=== PATIENT | male | born 1960 | race Caucasian/White ===

== ENCOUNTER 2016-12-10 05:22 | Inpatient (IN) | payer MEDICAID ==
[~2016-12-10] VITALS: Ht 175.3 cm; Wt 102.5 kg
[2016-12-10] MEDS ORDERED: MORPHINE SULFATE 4 MG/ML SYRG IV ONE (05:45)
[2016-12-10] MEDS ORDERED: HEPARIN SODIUM (PORCINE) 5000 UNITS/ML 1ML VIAL ONE (05:51)
[2016-12-10] MEDS ORDERED: LIDOCAINE 2%HCL (LOCAL ANESTH.) INJ 20ML MDV ONE (06:11)
[2016-12-10] MEDS ORDERED: IODIXANOL 320MG/ML 100ML BTL IV ONE (06:12)
[2016-12-10] MEDS ORDERED: HEPARIN IN NS 1000Units/500mL 1,500 ML ONE (06:12)
[2016-12-10 06:35] LABS: Albumin 3.7 g/dL (3.4-5.0); Calcium 8.6 mg/dL (8.5-10.1); Potassium 4.4 mmol/L (3.5-5.1)
[2016-12-10] MEDS ORDERED: MIDAZOLAM HCL 1MG/1ML-2 ML VIAL ONE (06:35)
[2016-12-10] MEDS ORDERED: fentaNYL CITRATE 100 MCG/2 ML VL ONE (06:35)
[2016-12-10] MEDS ORDERED: SODIUM CHL 0.9% 0 ML ONE (06:36)
[2016-12-10] MEDS ORDERED: ANGIOMAX 250 MG VIAL IV ONE (06:36)
[2016-12-10] MEDS ORDERED: EPINEPHrine HCL 1 MG/10 ML SYRG ONE (06:37)
[2016-12-10] MEDS ORDERED: ATROPINE SULF 0.5 MG/5ML SYR ONE (06:37)
[2016-12-10 06:38] LABS: Bilirubin, Total 0.2 mg/dL (0.2-1.0); Total Protein 7.1 g/dL (6.4-8.2)
[2016-12-10 06:58] LABS: Basophils # (auto) 0.1 uL; Basophils % (auto) 0.6 % (0.0-2.0); DEFINITIVE VIEW TRANSMISSION; Eosinophils # (auto) 0.2 uL; Eosinophils % (auto) 2.1 % (0.0-7.0); Hematocrit 54.9 % (41.0-53.0); Hemoglobin 17.6 g/dL (13.5-17.5); Lymphocytes # (auto) 1.7 uL; Mean Corpuscular Hemoglobin 28.2 pg (28.0-32.0); Mean Corpuscular Hgb Conc. 32.1 g/dL (32.0-36.0); Mean Platelet Volume 9.3 fL (7.4-10.4); Monocytes # (auto) 0.8 uL; Monocytes % (auto) 8.6 % (0.0-12.0); Neutrophils # (auto) 6.3 uL; Neutrophils % (auto) 69.7 % (37.0-80.0); Platelet Count (auto) 207 10^3/uL (140-450); Red Cell Distribution Width 14.8 % (11.6-16.0); White Blood Cell 9.1 10^3/uL (4.4-10.8)
[2016-12-10] MEDS ORDERED: DEXTROSE (50%) 50ML SYRG IV PRN ×2 (07:45→11:45)
[2016-12-10] MEDS ORDERED: NITROGLYCERIN 0.4 MG SL TAB SL PRN (07:45)
[2016-12-10] MEDS ORDERED: MORPHINE SULF INJ 2 MG/ML SYRINGE 1ML IV PRN (07:45)
[2016-12-10 08:38] LABS: Cholesterol 173 mg/dL (<200); HDL Cholesterol 42 mg/dL (40-59); LDL Cholesterol 100 mg/dL (<100); Triglycerides 265 mg/dL (<150)
[2016-12-10] MEDS: METOPROLOL SUCCINATE XL 50 MG TAB PO SCH (09:19)
[2016-12-10] MEDS: CLOPIDOGREL BISULFATE 75 MG TAB PO SCH (09:19)
[2016-12-10] MEDS: ATORVASTATIN 20 MG TAB PO SCH (09:19)
[2016-12-10] MEDS: ASPirin-EC 81 mg tab PO SCH (09:19)
[2016-12-10] MEDS: ENALAPRIL MALEATE 2.5 MG TAB PO SCH (09:20)
[2016-12-10] MEDS ORDERED: InsuLIN REG 1unit/0.01ml Soln (100units/ml) SC SCH ×2 (11:30→22:00)
[2016-12-10] MEDS ORDERED: ACCU-CHEK COMFORT CURVE STRIP VI SCH (11:30)
[2016-12-10] MEDS: ACCU-CHEK COMFORT CURVE STRIP VI SCH ×3 (11:54→21:21)
[2016-12-10] MEDS: InsuLIN REG 1unit/0.01ml Soln (100units/ml) SC SCH ×3 (11:55→21:26)
[2016-12-10 13:29] VITALS: BP 108/62
[2016-12-10] MEDS ORDERED: LISI10TA6 PO (14:59)
[2016-12-10] MEDS ORDERED: METO25TA5 PO (14:59)
[2016-12-10] MEDS ORDERED: ATOR40TA52 PO (14:59)
[2016-12-10] MEDS ORDERED: CLOP75TA41 PO (14:59)
[2016-12-10] MEDS ORDERED: ASPI-231 PO (14:59)
[2016-12-10 17:00] VITALS: BP 115/62
[2016-12-10 20:00] VITALS: BP 106/58
[2016-12-10 21:30] VITALS: BP 106/58
[2016-12-11 05:00] VITALS: BP 112/62
[2016-12-11] MEDS: ACCU-CHEK COMFORT CURVE STRIP VI SCH ×4 (06:20→21:49)
[2016-12-11] MEDS: InsuLIN REG 1unit/0.01ml Soln (100units/ml) SC SCH ×4 (06:25→21:49)
[2016-12-11 06:36] LABS: Basophils # (auto) 0 uL; Basophils % (auto) 0.5 % (0.0-2.0); Eosinophils # (auto) 0.2 uL; Eosinophils % (auto) 2.3 % (0.0-7.0); Hematocrit 53.6 % (41.0-53.0); Hemoglobin 16.9 g/dL (13.5-17.5); Lymphocytes # (auto) 1.8 uL; Mean Corpuscular Hemoglobin 28.2 pg (28.0-32.0); Mean Corpuscular Hgb Conc. 31.6 g/dL (32.0-36.0); Mean Corpuscular Volume 89.4 fL (80.0-100.0); Mean Platelet Volume 9.1 fL (7.4-10.4); Monocytes # (auto) 0.8 uL; Monocytes % (auto) 8.6 % (0.0-12.0); Neutrophils # (auto) 6.3 uL; Neutrophils % (auto) 68.6 % (37.0-80.0); Platelet Count (auto) 200 10^3/uL (140-450); Red Cell Distribution Width 14.7 % (11.6-16.0); White Blood Cell 9.1 10^3/uL (4.4-10.8)
[2016-12-11 06:47] LABS: Potassium 4.5 mmol/L (3.5-5.1)
[2016-12-11 06:52] LABS: BUN/Creatinine Ratio 15.6; Calcium 8.2 mg/dL (8.5-10.1)
[2016-12-11 09:00] VITALS: BP 120/59
[2016-12-11] MEDS: ASPirin-EC 81 mg tab PO SCH (10:35)
[2016-12-11] MEDS: CLOPIDOGREL BISULFATE 75 MG TAB PO SCH (10:35)
[2016-12-11] MEDS: ENOXAPARIN SOD 100 MG/1 ML SYRINGE SC SCH ×2 (10:35→21:40)
[2016-12-11] MEDS: ATORVASTATIN 20 MG TAB PO SCH (10:36)
[2016-12-11] MEDS: METOPROLOL SUCCINATE XL 50 MG TAB PO SCH (10:36)
[2016-12-11] MEDS: ENALAPRIL MALEATE 2.5 MG TAB PO SCH (10:37)
[2016-12-11 13:00] VITALS: BP 121/73
[2016-12-11 17:00] VITALS: BP 113/62
[2016-12-11 20:00] VITALS: BP 112/70
[2016-12-11 21:58] VITALS: BP 112/70
[2016-12-12 04:48] VITALS: BP 102/66
[2016-12-12] MEDS: InsuLIN REG 1unit/0.01ml Soln (100units/ml) SC SCH ×2 (06:47→11:30)
[2016-12-12] MEDS: ACCU-CHEK COMFORT CURVE STRIP VI SCH ×2 (07:00→11:33)
[2016-12-12 08:00] VITALS: BP 102/66
[2016-12-12 09:00] VITALS: BP 113/63
[2016-12-12] MEDS: ENOXAPARIN SOD 100 MG/1 ML SYRINGE SC SCH (09:20)
[2016-12-12] MEDS: ASPirin-EC 81 mg tab PO SCH (09:20)
[2016-12-12] MEDS: CLOPIDOGREL BISULFATE 75 MG TAB PO SCH (09:20)
[2016-12-12] MEDS: ATORVASTATIN 20 MG TAB PO SCH (09:20)
[2016-12-12] MEDS: METOPROLOL SUCCINATE XL 50 MG TAB PO SCH (10:00)
[2016-12-12] MEDS: ENALAPRIL MALEATE 2.5 MG TAB PO SCH (10:00)
[2016-12-12 13:00] VITALS: BP 112/78
[2016-12-12 15:18] VITALS: BP 112/78
== END 2016-12-12 16:00 | disposition home or self-care (01) | DRG 190 ==
LOC: ER 05:22 → EAST 05:23 → TELE-EAST 08:15
PROVIDERS: ADMIT Emergency Medicine; ATTEND Internal Medicine
PROC: 4A023N7 Measurement of Cardiac Sampling and Pressure, Left Heart, Percutaneous Approach (ICD-10-PCS; principal; 2016-12-10)
PROC: B2111ZZ Fluoroscopy of Multiple Coronary Arteries using Low Osmolar Contrast (ICD-10-PCS; 2016-12-10)
PROC: B2151ZZ Fluoroscopy of Left Heart using Low Osmolar Contrast (ICD-10-PCS; 2016-12-10)
PROC: B41F1ZZ Fluoroscopy of Right Lower Extremity Arteries using Low Osmolar Contrast (ICD-10-PCS; 2016-12-10)
DX: I21.3 ST elevation (STEMI) myocardial infarction of unspecified site (principal); I50.43 Acute on chronic combined systolic (congestive) and diastolic (congestive) heart failure; T82.855A Stenosis of coronary artery stent, initial encounter; E66.01 Morbid (severe) obesity due to excess calories; Y83.1 Surgical operation with implant of artificial internal device as the cause of abnormal reaction of the patient, or of later complication, without mention of misadventure at the time of the procedure; I10 Essential (primary) hypertension; F17.210 Nicotine dependence, cigarettes, uncomplicated; I25.10 Atherosclerotic heart disease of native coronary artery without angina pectoris; I25.5 Ischemic cardiomyopathy; E78.5 Hyperlipidemia, unspecified; I25.2 Old myocardial infarction; Z68.33 Body mass index [BMI] 33.0-33.9, adult
CPT/HCPCS: 36415; 71010; 80048; 80053; 80061; 82962; 83036; 84443; 84484; 85025; 93005; 93306; 96365; 96375; 99291; J0461; J1815; J2250; Q9967

== ENCOUNTER 2017-04-13 02:34 | Inpatient (IN) | payer MEDICAID ==
[~2017-04-13] VITALS: Ht 175.3 cm; Wt 118.4 kg
[~2017-04-13 02:34] MED LIST: ASPI-231 PO; ATOR40TA52 PO; CLOP75TA41 PO; LISI10TA6 PO; METO25TA5 PO
[2017-04-13 04:12] LABS: Basophils # (auto) 0.1 uL; Basophils % (auto) 0.6 % (0.0-2.0); Eosinophils # (auto) 0.2 uL; Hematocrit 48.7 % (41.0-53.0); Hemoglobin 16.4 g/dL (13.5-17.5); Lymphocytes # (auto) 1.7 uL; Mean Corpuscular Hemoglobin 29.3 pg (28.0-32.0); Mean Corpuscular Hgb Conc. 33.7 g/dL (32.0-36.0); Mean Platelet Volume 8.9 fL (7.4-10.4); Monocytes # (auto) 0.9 uL; Monocytes % (auto) 8.6 % (0.0-12.0); Neutrophils # (auto) 7.4 uL; Neutrophils % (auto) 71.8 % (37.0-80.0); Platelet Count (auto) 238 10^3/uL (140-450); Red Cell Distribution Width 14.2 % (11.6-16.0); White Blood Cell 10.3 10^3/uL (4.4-10.8)
[2017-04-13 04:30] LABS: Albumin 3.5 g/dL (3.4-5.0); BUN/Creatinine Ratio 13.2; Bilirubin, Total 0.4 mg/dL (0.2-1.0); Calcium 8.2 mg/dL (8.5-10.1); Magnesium 2.3 mg/dL (1.6-2.6); Potassium 4.3 mmol/L (3.5-5.1); Total Protein 7.1 g/dL (6.4-8.2)
[2017-04-13 04:32] LABS: INR 1.02 (0.9-1.15); Partial Thromboplastin Time 31.3 sec (22.64-33.71); Prothrombin Time 11.1 sec (9.37-12.3)
[2017-04-13 05:02] LABS: Temperature: 21.4 C (20.0-25.0)
[2017-04-13] MEDS ORDERED: HYDROcodone-ACET 5/325MG TAB PO PRN (06:45)
[2017-04-13] MEDS ORDERED: ACETAMINOPHEN 325 MG TAB PO PRN (06:45)
[2017-04-13] MEDS ORDERED: NITROGLYCERIN 0.4 MG SL TAB SL PRN (06:45)
[2017-04-13] MEDS ORDERED: MORPHINE SULF INJ 2 MG/ML SYRINGE 1ML IV PRN (06:45)
[2017-04-13] MEDS ORDERED: ONDANSETRON HCL 4 MG/2 ML VIAL IV PRN (06:45)
[2017-04-13] MEDS ORDERED: DEXTROSE (50%) 50ML SYRG IV PRN (06:45)
[2017-04-13] MEDS: FAMOTIDINE 20 MG TAB PO SCH ×2 (10:00→22:43)
[2017-04-13] MEDS: ISOSORBIDE DINITRATE 10 MG TAB PO SCH ×2 (10:32→22:42)
[2017-04-13] MEDS: ASPirin 81 mg TAB PO SCH (10:33)
[2017-04-13] MEDS: CLOPIDOGREL BISULFATE 75 MG TAB PO SCH (10:33)
[2017-04-13] MEDS: LISINOPRIL 10 MG TAB PO SCH (10:34)
[2017-04-13] MEDS: ENOXAPARIN SOD 40 MG/0.4 ML SYRINGE SC SCH (10:35)
[2017-04-13] MEDS: METOPROLOL TARTRATE 25 MG TAB PO SCH ×2 (10:36→22:42)
[2017-04-13] MEDS: ACCU-CHEK COMFORT CURVE STRIP VI SCH ×3 (12:36→22:43)
[2017-04-13] MEDS: InsuLIN REG 1unit/0.01ml Soln (100units/ml) SC SCH ×3 (12:37→22:43)
[2017-04-13] MEDS ORDERED: METF-370 PO (14:29)
[2017-04-13 16:55] VITALS: BP 115/49
[2017-04-13 21:30] VITALS: BP 99/52
[2017-04-13] MEDS ORDERED: ATORVASTATIN 20 MG TAB PO SCH (22:00)
[2017-04-14 05:00] VITALS: BP 90/53
[2017-04-14 05:51] LABS: Basophils # (auto) 0 uL; Basophils % (auto) 0.4 % (0.0-2.0); Eosinophils # (auto) 0.2 uL; Eosinophils % (auto) 2.1 % (0.0-7.0); Hemoglobin 15.3 g/dL (13.5-17.5); Lymphocytes # (auto) 1.9 uL; Lymphocytes % (auto) 19.6 % (10.0-50.0); Mean Corpuscular Hemoglobin 29.2 pg (28.0-32.0); Mean Corpuscular Hgb Conc. 33.2 g/dL (32.0-36.0); Mean Corpuscular Volume 87.9 fL (80.0-100.0); Mean Platelet Volume 9.1 fL (7.4-10.4); Monocytes # (auto) 0.8 uL; Monocytes % (auto) 8.9 % (0.0-12.0); Neutrophils # (auto) 6.5 uL; Platelet Count (auto) 229 10^3/uL (140-450); Red Cell Distribution Width 14.1 % (11.6-16.0); White Blood Cell 9.5 10^3/uL (4.4-10.8)
[2017-04-14] MEDS: InsuLIN REG 1unit/0.01ml Soln (100units/ml) SC SCH (06:00)
[2017-04-14] MEDS: ACCU-CHEK COMFORT CURVE STRIP VI SCH (06:19)
[2017-04-14 06:24] LABS: Albumin 3.2 g/dL (3.4-5.0); BUN/Creatinine Ratio 16.5; Bilirubin, Total 0.6 mg/dL (0.2-1.0); Calcium 8.5 mg/dL (8.5-10.1); Potassium 4.5 mmol/L (3.5-5.1)
[2017-04-14 09:35] VITALS: BP 115/56
[2017-04-14] MEDS: ASPirin 81 mg TAB PO SCH (09:56)
[2017-04-14] MEDS: CLOPIDOGREL BISULFATE 75 MG TAB PO SCH (09:56)
[2017-04-14] MEDS: LISINOPRIL 10 MG TAB PO SCH (09:56)
[2017-04-14] MEDS: FAMOTIDINE 20 MG TAB PO SCH (09:56)
[2017-04-14] MEDS: ISOSORBIDE DINITRATE 10 MG TAB PO SCH (09:57)
[2017-04-14] MEDS: METOPROLOL TARTRATE 25 MG TAB PO SCH (09:59)
[2017-04-14] MEDS: ENOXAPARIN SOD 40 MG/0.4 ML SYRINGE SC SCH (10:00)
[2017-04-14 11:08] VITALS: BP 110/67
[2017-04-14 11:50] VITALS: BP 113/70
== END 2017-04-14 13:15 | disposition home or self-care (01) | DRG 198 ==
LOC: ER 02:34 → TELE 02:35 → TELE-E-ADS 14:56 → TELE-WESTW 15:00
PROVIDERS: ADMIT Nurse Practitioner; ATTEND Internal Medicine
DX: R07.9 Chest pain, unspecified (principal); I25.2 Old myocardial infarction; I10 Essential (primary) hypertension; E11.9 Type 2 diabetes mellitus without complications; Z95.5 Presence of coronary angioplasty implant and graft; E66.9 Obesity, unspecified; F17.210 Nicotine dependence, cigarettes, uncomplicated; Z82.5 Family history of asthma and other chronic lower respiratory diseases; Z80.9 Family history of malignant neoplasm, unspecified; Z68.38 Body mass index [BMI] 38.0-38.9, adult; E78.5 Hyperlipidemia, unspecified; I25.10 Atherosclerotic heart disease of native coronary artery without angina pectoris
CPT/HCPCS: 36415; 71010; 80053; 82962; 83735; 83880; 84484; 85025; 85610; 85730; 93005; J1815

== ENCOUNTER 2019-08-19 22:22 | Emergency (ER) | payer MEDICAID ==
[~2019-08-19] VITALS: Ht 172.7 cm; Wt 108.9 kg
[~2019-08-19 22:22] MED LIST changes: +METF-370 PO
[2019-08-19 22:55] LABS: Basophils # (auto) 0.1 uL; Eosinophils # (auto) 0.2 uL
[2019-08-19 22:57] LABS: Basophils % (auto) 1.3 % (0.0-2.0); Hematocrit 53.5 % (41.0-53.0); Hemoglobin 18.1 g/dL (13.5-17.5); Mean Corpuscular Hemoglobin 30.2 pg (28.0-32.0); Mean Corpuscular Hgb Conc. 33.8 g/dL (32.0-36.0); Mean Corpuscular Volume 89.2 fL (80.0-100.0); Monocytes # (auto) 0.8 uL; Monocytes % (auto) 9.1 % (0.0-12.0); Neutrophils # (auto) 6.1 uL; Neutrophils % (auto) 65.6 % (37.0-80.0); Nucleated Red Blood Cells % 0.1 %; Platelet Count (auto) 204 10^3/uL (140-450); Red Blood Cells 5.99 10^6/uL (4.5-5.90); White Blood Cell 9.3 10^3/uL (4.4-10.8)
[2019-08-19 23:12] LABS: INR 1.02 (0.9-1.15); Partial Thromboplastin Time 30.2 sec (23.64-32.05)
[2019-08-19 23:14] LABS: Alanine Aminotransferase 24 U/L (16-61); Albumin 3.9 g/dL (3.4-5.0); Anion Gap 4 (5-15); Blood Urea Nitrogen 13 mg/dL (7-18); Calcium 8.7 mg/dL (8.5-10.1); Carbon Dioxide 28 mmol/L (21-32); Chloride 103 mmol/L (98-107); Glucose 224 mg/dL (74-106); Potassium 4.3 mmol/L (3.5-5.1); Sodium 135 mmol/L (136-145)
[2019-08-19 23:19] LABS: Alkaline Phosphatase 77 U/L (45-117); Aspartate Aminotransferase 9 U/L (15-37); BUN/Creatinine Ratio 12.5; Bilirubin, Total 0.4 mg/dL (0.2-1.0); GFR African American 94 mL/min; GFR Non-African American 78 mL/min; Total Protein 7.4 g/dL (6.4-8.2)
[2019-08-20 02:29] VITALS: BP 103/60
[2019-08-20] MEDS ORDERED: ENOXAPARIN SOD 120 MG/0.8 ML SYRINGE SC ONE (02:30)
== END 2019-08-20 02:05 | disposition home or self-care (01) ==
LOC: EDBD 22:22 → ER 22:26
DX: R07.2 Precordial pain (principal); E11.9 Type 2 diabetes mellitus without complications; I10 Essential (primary) hypertension; I25.2 Old myocardial infarction; F17.210 Nicotine dependence, cigarettes, uncomplicated; Z79.82 Long term (current) use of aspirin; Z79.01 Long term (current) use of anticoagulants; Z79.899 Other long term (current) drug therapy
CPT/HCPCS: 36415; 71045; 74176; 80053; 83880; 84484; 85025; 85610; 85730; 93005; 94761; 96372; 99284; J1650

== ENCOUNTER 2019-08-20 15:38 | Inpatient (IN) | payer MEDICAID ==
[~2019-08-20] VITALS: Ht 174 cm; Wt 111.6 kg
[2019-08-20] MEDS ORDERED: ASPirin 81 mg TAB PO ONE (16:00)
[2019-08-20] MEDS ORDERED: ENOXAPARIN SOD 120 MG/0.8 ML SYRINGE SC ONE (16:15)
[2019-08-20] MEDS ORDERED: NITROGLYCERIN 0.4 MG SL TAB SL ONE (16:15)
[2019-08-20 16:35] LABS: Basophils # (auto) 0.1 uL; Basophils % (auto) 1.2 % (0.0-2.0); Eosinophils # (auto) 0.2 uL; Monocytes # (auto) 0.8 uL; Neutrophils # (auto) 5.4 uL; White Blood Cell 8.3 10^3/uL (4.4-10.8)
[2019-08-20 16:38] LABS: Eosinophils % (auto) 2.4 % (0.0-7.0); Hematocrit 53.8 % (41.0-53.0); Lymphocytes # (auto) 1.7 uL; Lymphocytes % (auto) 20.8 % (10.0-50.0); Mean Corpuscular Hemoglobin 29.6 pg (28.0-32.0); Mean Corpuscular Hgb Conc. 33.5 g/dL (32.0-36.0); Mean Corpuscular Volume 88.3 fL (80.0-100.0); Monocytes % (auto) 9.8 % (0.0-12.0); Neutrophils % (auto) 65.8 % (37.0-80.0); Nucleated Red Blood Cells % 0.3 %; Platelet Count (auto) 208 10^3/uL (140-450); Red Blood Cells 6.09 10^6/uL (4.5-5.90); Red Cell Distribution Width 14.1 % (11.8-14.3)
[2019-08-20 16:40] LABS: Albumin 3.8 g/dL (3.4-5.0); Calcium 8.9 mg/dL (8.5-10.1); Potassium 4.5 mmol/L (3.5-5.1)
[2019-08-20 16:44] LABS: INR 0.98 (0.9-1.15); Partial Thromboplastin Time 31.8 sec (23.64-32.05)
[2019-08-20 16:45] LABS: Bilirubin, Total 0.5 mg/dL (0.2-1.0); Total Protein 7.5 g/dL (6.4-8.2)
[2019-08-20] MEDS ORDERED: DEXTROSE (50%) 50ML SYRG IV PRN (21:00)
[2019-08-20] MEDS ORDERED: ONDANSETRON HCL 4 MG/2 ML VIAL IV PRN (21:00)
[2019-08-20] MEDS ORDERED: NITROGLYCERIN 0.4 MG SL TAB SL PRN (21:00)
[2019-08-20] MEDS ORDERED: ACETAMINOPHEN 325 MG TAB PO PRN (21:00)
[2019-08-20] MEDS ORDERED: TEMAZEPAM 15 MG CAP PO PRN (21:00)
[2019-08-20] MEDS ORDERED: MORPHINE SULF INJ 2 MG/ML SYRINGE 1ML IV PRN (21:00)
[2019-08-20 21:28] LABS: Cholesterol 154 mg/dL (< 200)
[2019-08-20 21:30] LABS: HDL Cholesterol 34 mg/dL (40-59); LDL Cholesterol 91 mg/dL (< 100); Triglycerides 265 mg/dL (< 150)
--- NOTE | 2019-08-20 22:50 | NUR ---
Telemetry admit from ER DOLORES IBRAHIM admitted to Telemetry unit after SBAR received. Patient oriented to NILAM PALOMO, RN primary RN, unit, room, bed, and unit policies regarding patient care and visiting hours. Patient now on continuous telemetry monitoring, tele box #[id number] and telemetry reading on arrival to unit is 74. Patient placed on bed, weighed by bedscale and encouraged to call if they need something. Patient had no pain or SOB. All questions and concerns addressed, patient verbalized understanding. Patient's was with patient. Will continue to monitor q1hr and as PRN.
[2019-08-20 23:00] VITALS: BP 119/66
[2019-08-20] MEDS: ATORVASTATIN 20 MG TAB PO SCH (23:08)
[2019-08-20] MEDS: FAMOTIDINE 20 MG TAB PO SCH (23:08)
[2019-08-21] MEDS ORDERED: PNEUMOCOCCAL VACC POLYS 25 MCG/0.5 ML VIAL IM ONE (01:15)
[2019-08-21 05:47] VITALS: BP 132/71
[2019-08-21] MEDS: ACCU-CHEK COMFORT CURVE STRIP VI SCH ×5 (06:06→23:39)
[2019-08-21] MEDS: InsuLIN REG 1unit/0.01ml Soln (100units/ml) SC SCH ×5 (06:07→23:39)
[2019-08-21 09:00] VITALS: BP 124/66
[2019-08-21] MEDS: FAMOTIDINE 20 MG TAB PO SCH ×2 (09:40→21:28)
[2019-08-21] MEDS: CLOPIDOGREL BISULFATE 75 MG TAB PO SCH (09:41)
[2019-08-21] MEDS: LISINOPRIL 10 MG TAB PO SCH (09:41)
[2019-08-21] MEDS ORDERED: ASPirin 81 mg TAB PO SCH (10:00)
[2019-08-21 13:00] VITALS: BP 126/75
[2019-08-21 13:36] LABS: Urine WBC None Seen /hpf (0 - 3)
[2019-08-21 14:05] LABS: Alcohol, Urine < 3.0 mg/dL (0-5); Amphetamine Screen, Urine NEGATIVE (NEGATIVE); Barbiturate Scree,Urine NEGATIVE (NEGATIVE); Benzodiazephine Screen, Urine NEGATIVE (NEGATIVE); Cannabinoid Screen, Urine NEGATIVE (NEGATIVE); Cocaine Screen, Urine NEGATIVE (NEGATIVE); Opiate Scree,Urine NEGATIVE (NEGATIVE); Phencyclidine Screen, Urine NEGATIVE (NEGATIVE); Urine Bacteria NONE SEEN /hpf (None Seen); Urine Blood Negative /uL (Negative); Urine Specific Gravity 1.007 (1.001-1.035)
[2019-08-21 16:45] VITALS: BP_SYST 135; BP_SYST 144; BP_DIAS 69; BP_DIAS 75
--- NOTE | 2019-08-21 20:00 | NUR ---
ASSUMED CARE, PT. AWAKE, RELATIVE AT BEDSIDE, NO C/O PAIN, ADVISED PT. NPO AFTER MN, NO SOB.
[2019-08-21] MEDS: ATORVASTATIN 20 MG TAB PO SCH (21:28)
[2019-08-22 05:39] VITALS: BP 107/70
[2019-08-22] MEDS: ACCU-CHEK COMFORT CURVE STRIP VI SCH ×2 (05:45→12:19)
[2019-08-22] MEDS: InsuLIN REG 1unit/0.01ml Soln (100units/ml) SC SCH ×2 (05:45→12:19)
[2019-08-22] MEDS ORDERED: ADENOSINE 94 MG in GIVE UN-DILUTED 0 ML IV STA (08:12)
[2019-08-22 09:00] VITALS: BP 131/72
[2019-08-22] MEDS: FAMOTIDINE 20 MG TAB PO SCH (09:29)
[2019-08-22] MEDS: LISINOPRIL 10 MG TAB PO SCH (09:29)
[2019-08-22] MEDS ORDERED: ASPirin 81 mg TAB PO SCH (10:00)
[2019-08-22] MEDS: CLOPIDOGREL BISULFATE 75 MG TAB PO SCH (12:19)
[2019-08-22 13:00] VITALS: BP 127/70
[2019-08-22 15:21] VITALS: BP 131/72
== END 2019-08-22 16:58 | disposition home or self-care (01) | DRG 198 ==
LOC: ER 15:38 → TELE 15:39 → TELE-WESTW 22:46
PROVIDERS: ADMIT Nurse Practitioner; ATTEND Internal Medicine
DX: I25.10 Atherosclerotic heart disease of native coronary artery without angina pectoris (principal); I50.20 Unspecified systolic (congestive) heart failure; D75.1 Secondary polycythemia; E66.01 Morbid (severe) obesity due to excess calories; E11.65 Type 2 diabetes mellitus with hyperglycemia; E78.5 Hyperlipidemia, unspecified; F17.210 Nicotine dependence, cigarettes, uncomplicated; J44.9 Chronic obstructive pulmonary disease, unspecified; I25.5 Ischemic cardiomyopathy; Z80.0 Family history of malignant neoplasm of digestive organs; Z95.5 Presence of coronary angioplasty implant and graft; I25.2 Old myocardial infarction; Z79.84 Long term (current) use of oral hypoglycemic drugs; Z79.82 Long term (current) use of aspirin; Z79.899 Other long term (current) drug therapy; Z90.49 Acquired absence of other specified parts of digestive tract; Z82.5 Family history of asthma and other chronic lower respiratory diseases; Z91.19 Patient's noncompliance with other medical treatment and regimen; Z71.6 Tobacco abuse counseling; Z68.36 Body mass index [BMI] 36.0-36.9, adult
CPT/HCPCS: 36415; 71045; 78452; 80053; 80061; 80307; 81001; 82962; 83036; 84484; 85025; 85610; 85730; 93017; 93306; 96365; 96372; G0378; J0153; J1815

== ENCOUNTER 2020-05-04 15:22 | Inpatient (IN) | payer MEDICAID ==
[~2020-05-04] VITALS: Ht 172.7 cm; Wt 107.5 kg
[2020-05-04] MEDS ORDERED: fentaNYL CITRATE 100 MCG/2 ML VL ONE (15:34)
[2020-05-04] MEDS ORDERED: ANGIOMAX 250 MG VIAL IV ONE (15:34)
[2020-05-04] MEDS ORDERED: MIDAZOLAM HCL 1MG/1ML-2 ML VIAL ONE (15:35)
[2020-05-04] MEDS ORDERED: IOHEXOL 350 MG/ML 100ML IJ ONE (15:35)
[2020-05-04] MEDS ORDERED: LIDOCAINE 2%HCL (LOCAL ANESTH.) INJ 20ML MDV ONE (15:35)
[2020-05-04] MEDS ORDERED: SODIUM CHL 0.9% 50 ML ONE (15:35)
[2020-05-04] MEDS ORDERED: IODIXANOL 320MG/ML 100ML BTL IV ONE (15:40)
[2020-05-04] MEDS ORDERED: HEPARIN SODIUM (PORCINE) 5000 UNITS/ML 1ML VIAL IV ONE (15:45)
[2020-05-04 15:56] LABS: Basophils # (auto) 0.1 10 ^3/uL (0-0.2); Eosinophils # (auto) 0.2 10 ^3/uL (0-0.8); Eosinophils % (auto) 1.7 % (0.0-7.0); Hemoglobin 18.6 g/dL (13.5-17.5); Lymphocytes # (auto) 2.8 10 ^3/uL (0.4-5.4)
[2020-05-04 15:58] LABS: Basophils % (auto) 1.3 % (0.0-2.0); Lymphocytes % (auto) 26.5 % (10.0-50.0); Mean Corpuscular Hemoglobin 29.6 pg (28.0-32.0); Mean Corpuscular Hgb Conc. 33.2 g/dL (32.0-36.0); Mean Corpuscular Volume 89.4 fL (80.0-100.0); Monocytes % (auto) 9.8 % (0.0-12.0); Neutrophils # (auto) 6.4 10 ^3/uL (1.6-8.6); Neutrophils % (auto) 60.7 % (37.0-80.0); Nucleated Red Blood Cells % 0.2 %; Platelet Count (auto) 218 10^3/uL (140-450); Red Blood Cells 6.29 10^6/uL (4.5-5.90); Red Cell Distribution Width 13.8 % (11.8-14.3); White Blood Cell 10.5 10^3/uL (4.4-10.8)
[2020-05-04] MEDS ORDERED: VERAPAMIL 2.5MG/ML INJ 2ML VIAL IV ONE (16:05)
[2020-05-04] MEDS ORDERED: diphenhdrAMINE HCL 50 MG/1 ML VL ONE (16:08)
[2020-05-04 16:11] LABS: Hematocrit 56.2 % (41.0-53.0)
[2020-05-04 16:17] LABS: INR 1.09 (0.9-1.15); Partial Thromboplastin Time 27.6 sec (23.64-32.05)
[2020-05-04] MEDS ORDERED: EPTIFIBATIDE INJ (2MG/ML) 10ML VIAL IV ONE (16:17)
[2020-05-04] MEDS ORDERED: TICAGRELOR 90 MG TAB ONE (16:24)
[2020-05-04 16:27] LABS: Magnesium 2.1 mg/dL (1.6-2.6)
[2020-05-04 16:31] LABS: Cholesterol 212 mg/dL (< 200); HDL Cholesterol 36 mg/dL (40-59); LDL Cholesterol 150 mg/dL (< 100); Triglycerides 249 mg/dL (< 150)
[2020-05-04 16:37] LABS: Anion Gap 11 (5-15); Carbon Dioxide 20 mmol/L (21-32); Chloride 107 mmol/L (98-107); Glucose 209 mg/dL (74-106); Potassium 3.8 mmol/L (3.5-5.1); Sodium 138 mmol/L (136-145)
[2020-05-04 16:42] LABS: Alanine Aminotransferase 21 U/L (16-61); Alkaline Phosphatase 94 U/L (45-117); Aspartate Aminotransferase 11 U/L (15-37); BUN/Creatinine Ratio 22.1; Blood Urea Nitrogen 25 mg/dL (7-18); GFR African American 86 mL/min; GFR Non-African American 71 mL/min
[2020-05-04 16:43] LABS: Albumin 3.9 g/dL (3.4-5.0); Bilirubin, Total 0.4 mg/dL (0.2-1.0); Calcium 9.2 mg/dL (8.5-10.1); Total Protein 7.5 g/dL (6.4-8.2)
[2020-05-04] MEDS ORDERED: NITROGLYCERIN 0.4 MG SL TAB SL PRN (17:00)
[2020-05-04] MEDS ORDERED: SODIUM CHLORIDE 0.9% 1,000 ML IV ONE ×2 (17:00→18:45)
[2020-05-04] MEDS ORDERED: MORPHINE SULF INJ 2 MG/ML SYRINGE 1ML IV PRN (17:00)
[2020-05-04] MEDS ORDERED: OPTISON 3ml Vial for INJ IV ONE (17:35)
[2020-05-04] MEDS ORDERED: DEXTROSE (50%) 50ML SYRG IV PRN (18:45)
--- NOTE | 2020-05-04 18:54 | NUR ---
TELE ADMIT S/P PLUMBING TECHNICIAN Report received from RADHA Wasserman. DOLORES IBRAHIM brought to bed 233 following Cardiac catheterization. Patient transferred to unit bed, connected to monitor tech #8 and oxygen. Catheterization site assessed for any bleeding, redness or swelling, tegaderm dressing clean, dry, and intact. Patient instructed on need to notify staff immediately if any pain, burning or wetness to site, and any lower back pain. Bed locked in lowest position, side rails up x2, call light within reach. Patient instructed to call for assistance as needed, patient verbalized understanding. Will endorse admission to precinct captain RN. Addendum: 05/04/20 at 1903 by Ryann Haynes RN No s/s of distress, or SOB, no pain noted.
--- NOTE | 2020-05-04 20:30 | NUR ---
Opening Shift Note Assumed care of patient, awake and alert. No S/S of distress/SOB or pain. Instructed on POC and to call for assist PRN, will continue to monitor for changes Q1hr and PRN.PATIENT LEFT WRIST INSERTION SITE CLEAN DRY AND INTACT NO HEMATOMA; AND PT DENIES ANY NUMBESS OR TINGLING.
[2020-05-04 22:00] VITALS: BP 129/76
[2020-05-04] MEDS: ATORVASTATIN 20 MG TAB PO SCH (22:12)
[2020-05-04] MEDS: ACCU-CHEK COMFORT CURVE STRIP VI SCH (22:12)
[2020-05-04] MEDS: InsuLIN REG 1unit/0.01ml Soln (100units/ml) SC SCH (22:17)
[2020-05-05] MEDS: TICAGRELOR 90 MG TAB PO SCH ×3 (04:18→21:40)
[2020-05-05 05:00] VITALS: BP 111/70
[2020-05-05 05:47] LABS: Basophils # (auto) 0.1 10 ^3/uL (0-0.2); Basophils % (auto) 0.7 % (0.0-2.0); Eosinophils # (auto) 0.2 10 ^3/uL (0-0.8); Eosinophils % (auto) 1.5 % (0.0-7.0); Hematocrit 50.7 % (41.0-53.0); Lymphocytes # (auto) 1.5 10 ^3/uL (0.4-5.4); Lymphocytes % (auto) 13.5 % (10.0-50.0); Mean Corpuscular Hemoglobin 29.8 pg (28.0-32.0); Mean Corpuscular Hgb Conc. 33.5 g/dL (32.0-36.0); Mean Corpuscular Volume 88.9 fL (80.0-100.0); Monocytes % (auto) 8.7 % (0.0-12.0); Neutrophils # (auto) 8.3 10 ^3/uL (1.6-8.6); Neutrophils % (auto) 75.6 % (37.0-80.0); Nucleated Red Blood Cells % 0.1 %; Platelet Count (auto) 193 10^3/uL (140-450)
[2020-05-05 06:13] LABS: Potassium 3.9 mmol/L (3.5-5.1)
[2020-05-05 06:19] LABS: BUN/Creatinine Ratio 27.3; Calcium 8.2 mg/dL (8.5-10.1)
[2020-05-05] MEDS: ACCU-CHEK COMFORT CURVE STRIP VI SCH ×4 (06:31→21:31)
[2020-05-05] MEDS: InsuLIN REG 1unit/0.01ml Soln (100units/ml) SC SCH ×4 (06:32→21:51)
--- NOTE | 2020-05-05 06:45 | NUR ---
PATIENT LEFT WRIST INSERTION SITE CLEAN DRY AND INTACT NO HEMATOMA; AND PT DENIES ANY NUMBESS OR TINGLING.
--- NOTE | 2020-05-05 07:10 | NUR ---
OPENING NOTE Assumed care of patient at 0700. Respiratory sounds clear, equal bilaterally and unlabored. Patient verbalized that he is not in any pain at this time. Patient updated on POC. Bed locked in lowest position, side rails up x 2, HOB elevated at least 30 degrees and call light within reach.
[2020-05-05 08:24] VITALS: BP 115/72
[2020-05-05] MEDS: CILOSTAZOL 100 MG TAB PO SCH ×2 (09:36→21:29)
[2020-05-05] MEDS: ASPirin 81 mg TAB PO SCH (09:36)
[2020-05-05] MEDS: ATORVASTATIN 20 MG TAB PO SCH (09:37)
[2020-05-05] MEDS ORDERED: LISI-275 PO (12:18)
[2020-05-05] MEDS ORDERED: METF-929 PO (12:18)
[2020-05-05 13:07] VITALS: BP 126/74
--- NOTE | 2020-05-05 14:53 | NUR ---
IV removal IV DC'd with clean sterile technique, catheter fully intact. Pressure dressing applied to site. Patient tolerated well. NOTE: [left AC came out]
[2020-05-05 16:29] VITALS: BP 130/65
[2020-05-05 22:00] VITALS: BP 124/63
[2020-05-06 05:00] VITALS: BP 138/73
[2020-05-06] MEDS: ACCU-CHEK COMFORT CURVE STRIP VI SCH ×2 (05:03→11:16)
[2020-05-06] MEDS: InsuLIN REG 1unit/0.01ml Soln (100units/ml) SC SCH ×2 (05:06→11:16)
[2020-05-06 06:25] LABS: Basophils # (auto) 0.1 10 ^3/uL (0-0.2); Basophils % (auto) 0.8 % (0.0-2.0); Eosinophils # (auto) 0.2 10 ^3/uL (0-0.8); Eosinophils % (auto) 2.5 % (0.0-7.0); Hemoglobin 17.2 g/dL (13.5-17.5); Lymphocytes # (auto) 1.6 10 ^3/uL (0.4-5.4); Lymphocytes % (auto) 18.6 % (10.0-50.0); Mean Corpuscular Hemoglobin 29.9 pg (28.0-32.0); Mean Corpuscular Hgb Conc. 33.7 g/dL (32.0-36.0); Mean Corpuscular Volume 88.7 fL (80.0-100.0); Monocytes # (auto) 0.8 10 ^3/uL (0-1.3); Monocytes % (auto) 9.1 % (0.0-12.0); Neutrophils # (auto) 5.9 10 ^3/uL (1.6-8.6); Platelet Count (auto) 183 10^3/uL (140-450); Red Blood Cells 5.75 10^6/uL (4.5-5.90); Red Cell Distribution Width 13.8 % (11.8-14.3); White Blood Cell 8.6 10^3/uL (4.4-10.8)
[2020-05-06 06:41] LABS: Potassium 4.2 mmol/L (3.5-5.1)
[2020-05-06 07:04] LABS: BUN/Creatinine Ratio 15.9; Calcium 8.7 mg/dL (8.5-10.1)
--- NOTE | 2020-05-06 07:20 | NUR ---
OPENING NOTE Assumed care of patient. Patient awake and alert. No s/s of distress or sob, no pain noted. Updated on POC and instructed to call for assistance, patient verbalized understanding. Bed locked in lowest position, side rails up x 2, call light within reach. Will continue to monitor q1hr and PRN.
[2020-05-06 09:04] VITALS: BP 129/78
[2020-05-06] MEDS: ATORVASTATIN 20 MG TAB PO SCH (10:34)
[2020-05-06] MEDS: TICAGRELOR 90 MG TAB PO SCH (10:34)
[2020-05-06] MEDS: ASPirin 81 mg TAB PO SCH (10:34)
[2020-05-06] MEDS: CILOSTAZOL 100 MG TAB PO SCH (10:34)
[2020-05-06 10:45] VITALS: BP 129/78
--- NOTE | 2020-05-06 11:30 | NUR ---
Discharge home Discharge instructions given as ordered. Encourage to follow up with PMD as instructed. All questions and concerns addressed. Patient verbalized understanding. Medication reconciliation form completed and copy given to patient. IV removed with catheter intact, pressure dressing applied. Telemetry unit returned to ICU. Patient taken to vehicle via ambulation with all personal belongings, accompanied by staff. No distress noted at time of departure.
== END 2020-05-06 12:07 | disposition home or self-care (01) | DRG 175 ==
LOC: ER 15:22 → EDBD 15:22 → TELE 15:23 → TELE-EAST 19:10
PROVIDERS: ADMIT Nurse Practitioner Acute Care; ATTEND Internal Medicine
PROC: B2111ZZ Fluoroscopy of Multiple Coronary Arteries using Low Osmolar Contrast (ICD-10-PCS; principal; 2020-05-04)
PROC: 027034Z Dilation of Coronary Artery, One Artery with Drug-eluting Intraluminal Device, Percutaneous Approach (ICD-10-PCS; 2020-05-04)
DX: T82.867A Thrombosis due to cardiac prosthetic devices, implants and grafts, initial encounter (principal); I21.02 ST elevation (STEMI) myocardial infarction involving left anterior descending coronary artery; E11.22 Type 2 diabetes mellitus with diabetic chronic kidney disease; I50.42 Chronic combined systolic (congestive) and diastolic (congestive) heart failure; I13.0 Hypertensive heart and chronic kidney disease with heart failure and stage 1 through stage 4 chronic kidney disease, or unspecified chronic kidney disease; N18.3 Chronic kidney disease, stage 3 (moderate); E66.9 Obesity, unspecified; R07.9 Chest pain, unspecified; E78.5 Hyperlipidemia, unspecified; F17.210 Nicotine dependence, cigarettes, uncomplicated; I25.10 Atherosclerotic heart disease of native coronary artery without angina pectoris; Z79.82 Long term (current) use of aspirin; Z79.899 Other long term (current) drug therapy; Z90.49 Acquired absence of other specified parts of digestive tract; Z80.9 Family history of malignant neoplasm, unspecified; Z68.36 Body mass index [BMI] 36.0-36.9, adult; Z79.02 Long term (current) use of antithrombotics/antiplatelets; Z79.84 Long term (current) use of oral hypoglycemic drugs; Z82.5 Family history of asthma and other chronic lower respiratory diseases; E11.65 Type 2 diabetes mellitus with hyperglycemia
CPT/HCPCS: 36415; 71045; 80048; 80053; 80061; 82962; 83036; 83735; 83880; 84443; 84484; 85025; 85610; 85730; 86850; 86900; 86901; 93005; 93306; 99152; 99153; 99291; C1887; G0378; J1815; J2250; Q9956; Q9967